=== PATIENT | male | born 2000 | race American Indian/Alaskan Native ===

== ENCOUNTER 2021-01-29 14:50 | Outpatient (CLI) | payer OTHER ==
--- NOTE | 2021-01-29 16:02 | XRay Report ---
CHEST 2 VIEWS INDICATION: dyspnea. COMPARISON: None FINDINGS: Support devices: None. Heart: Within normal limits. Lungs/pleura: No acute air space or interstitial disease. No pleural effusion or pneumothorax. Additional findings: None. IMPRESSION: Unremarkable chest films. Signer Name: Saurabh Domingo Jr, MD Signed: 01/29/2021 3:57 PM Workstation Name: [id number]
== END 2021-01-29 14:51 | disposition home or self-care (01) ==
LOC: XRAY 14:50
PROVIDERS: ATTEND Internal Medicine
DX: S02.2XXD Fracture of nasal bones, subsequent encounter for fracture with routine healing (principal); R06.00 Dyspnea, unspecified; R63.4 Abnormal weight loss; F51.01 Primary insomnia; J45.20 Mild intermittent asthma, uncomplicated; J30.9 Allergic rhinitis, unspecified; K58.0 Irritable bowel syndrome with diarrhea; E55.9 Vitamin D deficiency, unspecified; F90.8 Attention-deficit hyperactivity disorder, other type; F43.23 Adjustment disorder with mixed anxiety and depressed mood; X58.XXXD Exposure to other specified factors, subsequent encounter
CPT/HCPCS: 71046